=== PATIENT | female | born 1955 | race Caucasian/White ===

== ENCOUNTER 2017-05-18 19:59 | Emergency (ER) | payer BC, OTHER ==
[2017-05-18] MEDS ORDERED: 0.9 % SODIUM CHLORIDE 1,000 ML BAG IV ONE (20:39)
--- NOTE | 2017-05-18 20:53 | Emergency Department Record ---
History of Present Illness - General Chief Complaint: Dizziness Stated Complaint: DIZZY WHEN STANDING,BP DROPS Time Seen by Provider: 05/18/17 20:21 Source: Patient Mode of Arrival: Ambulatory Limitations: No limitations - History of Present Illness Initial Comments: The patient is here due to feeling dizzy when standing for the last 2 days. She has had Influenza for the last 4 days and is on her 3rd day of Tamiflu. Her fever is improved and has resolved but she is still coughing. The patient for the last 2 days has had lightheadedness with standing and walking. There has been no reported vomiting, diarrhea, or CP. 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 At home she noticed her BP was going down with standing so she called him and he wanted her checked out for dehydration and possibly ARDS. Complaint: Lightheadedness Onset/Timin -: Days(s) Timing: Gradual onset Description: Lightheadedness, Off-balance History of Same: Yes (with flu and dehydration) History of Trauma: No Improves With: Remaining still, Rest Worsens With: Movement Associated Symptoms: Cough - Related Data Home Medications Medication Instructions Recorded Confirmed Last Taken Lansoprazole [Prevacid] 30 mg PO DAILY PRN 05/18/17 05/18/17 Unknown Oseltamivir Phosphate [Tamiflu] 75 mg PO BID 05/18/17 05/18/17 05/18/17 Allergies Allergy/AdvReac Type Severity Reaction Status Date / Time cefaclor [From Ceclor] Allergy HIVES Verified 05/18/17 20:08 codeine Allergy NAUSEA AND Verified 05/18/17 20:08 VOMITING hydrocodone Allergy NAUSEA AND Verified 05/18/17 20:08 VOMITING hydromorphone [From Dilaudid] Allergy NAUSEA AND Verified 05/18/17 20:08 VOMITING metoclopramide [From Reglan] Allergy panic Verified 05/18/17 20:08 attack morphine Allergy NAUSEA AND Verified 05/18/17 20:08 VOMITING promethazine [From Phenergan] Allergy panic Verified 05/18/17 20:23 attacks Travel Screening - Travel/Exposure Within Last 30 Days Have you traveled within the last 30 days?: No - Travel Symptoms Symptom Screening: None Review of Systems Constitutional: Reports: Malaise. Denies: Chills, Fever Eyes: Denies: Eye discharge ENT: Reports: Congestion Respiratory: Reports: Cough. Denies: Dyspnea Past Medical History - SOCIAL HISTORY Smoking Status: Never smoker - RESPIRATORY Hx Respiratory Disorders: No - CARDIOVASCULAR Hx Cardio Disorders: Yes Hx Hypertension: Yes (cleared with weight loss) Comment:: High cholesterol - NEURO Hx Neuro Disorders: Yes Hx Headaches: Yes - GI Hx GI Disorders: Yes Hx Reflux: Yes (recent esophogram) Hx Obstructive Bowel: Yes (x3) - Hx Genitourinary Disorders: Yes Hx Kidney Stones: Yes - ENDOCRINE Hx Endocrine Disorders: No - MUSCULOSKELETAL Hx Musculoskeletal Disorders: No - PSYCH Hx Psych Problems: No - HEMATOLOGY/ONCOLOGY Hx Hematology/Oncology Disorders: No Family Medical History Any Significant Family History?: Yes Family Hx Comment (NOT TO BE USED IN PLACE OF ITEMS BELOW): Mom w/thyroid disease, fibromyalgia Hx Cancer: Father *Cancer Comment: Prostate Hx Dementia: Mother Hx Heart Disease: Mother Hx HTN: Father, Mother, Brother/Sister Physical Exam - General General Appearance: Alert, Oriented x3, Cooperative, No acute distress - Head Head exam: Atraumatic, Normocephalic, Normal inspection - Eye Eye exam: Normal appearance, PERRL - ENT Throat exam: Normal inspection. negative: Tonsillar erythema, Tonsillar exudate - Neck Neck exam: Normal inspection, Full ROM. negative: Tenderness - Respiratory Respiratory exam: Normal lung sounds bilaterally. negative: Respiratory distress, Rhonchi, Stridor, Wheezes - Cardiovascular Cardiovascular Exam: Regular rate, Normal rhythm, Normal heart sounds - GI/Abdominal GI/Abdominal exam: Soft, Normal bowel sounds. negative: Tenderness - Extremities Extremities exam: Normal inspection, Full ROM, Normal capillary refill. negative: Tenderness - Neurological Neurological exam: Alert. negative: Motor sensory deficit Course Vital Signs 05/18/17 20:09 Temperature 98.4 F Pulse Rate [ 87 Pulse Ox Probe] Respiratory 16 Rate Blood Pressure 179/86 [Left Arm] Pulse Ox 96 - Reevaluation(s) Reevaluation #1: The patient is doing very well at this time. Her test results are all basically WNL's. She is to F/U with her PCP next week for recheck and also for the RLL nodule. 05/18/17 21:46 Medical Decision Making - Data Complexity MDM Data: Labs Ordered and/or Reviewed, X-Ray Ordered and/or Reviewed, EKG Ordered and/or Reviewed - Lab Data Result diagrams: 05/18/17 20:51 05/18/17 20:51 - EKG Data -: EKG Interpreted by Me EKG: No Acute Changes, Normal EKG - Radiology Data Radiology results: Report reviewed (CXR: Neg for infiltrate. possible nodule RLL.) Disposition Disposition: Discharge Clinical Impression: Influenza Disposition: Home, Self-Care Condition: (2) Stable Instructions: Influenza (ED) Additional Instructions: Please drink plenty of fluids. Please see your PCP next week for recheck and to have the R lung nodule evaluated further. Return to the ER for any worsening symptoms of cough, any fever, or dehydration. Forms: Patient Portal Access Time of Disposition: 21:48 Quality - Quality Measures Quality Measures: N/A - Blood Pressure Screening View Details: Yes Does Patient Have Any of the Following: No Blood Pressure Classification: Pre-Hypertensive BP Reading Systolic Measurement: 171 Diastolic Measurement: 81 Screening for High Blood Pressure: < Pre-Hypertensive BP, F/U Documented > [ G8950] Pre-Hypertensive Follow-up Interventions: Referral to alternative/primary care provider.
[2017-05-18 20:58] LABS: HEMATOCRIT 45.7 % (35.0-47.0); HEMOGLOBIN 15.2 gm/dl (11.6-16.0); MEAN CELL VOLUME 88.6 fl (81-97); MEAN CORPUSCULAR HEMOGLOBIN 29.5 pg (27-33); MEAN CORPUSCULAR HGB CONC 33.3 g/dl (32-36); MEAN PLATELET VOLUME 9.7 fl (7.4-10.4); PLATELET COUNT 255 K/uL (130-400); RED BLOOD COUNT 5.16 M/uL (3.80-5.40); RED CELL DISTRIBUTION WIDTH 12.9 % (11.5-14.5); WHITE BLOOD COUNT W/O DIFF 5.7 K/uL (4.2-12.2)
[2017-05-18 21:12] LABS: BLOOD UREA NITROGEN 20 mg/dL (8-23); CREATININE 0.8 mg/dL (0.5-0.9); EST GLOMERULAR FILTRATION RATE > 60 mL/min; TOTAL PROTEIN 6.8 g/dL (6.6-8.7)
[2017-05-18 21:15] LABS: GLUCOSE,RANDOM 106 mg/dL (74-109)
[2017-05-18 21:17] LABS: ALB/GLOB RATIO 1.6 (1.1-1.8); ALBUMIN 4.2 g/dL (4.0-5.0); ALKALINE PHOSPHATASE 68 U/L (35-104); ALT/SGPT 16 U/L (<33); AST/SGOT 18 U/L (10.0-35.0)
--- NOTE | 2017-05-19 23:54 | RADIOLOGY REPORT ---
EXAM: CHEST 2 VIEWS HISTORY: UNPRODUCTIVE COUGH FOR FOUR WEEKS. TECHNIQUE: Chest x-ray, two views. COMPARISON: None. FINDINGS: Heart not enlarged. No mediastinal mass. No acute infiltrate or vascular congestion identified. A round area of opacity is seen overlying the right lower lung on the frontal film, about 19 mm in size. This may be visualized on the lateral film overlying a lower thoracic vertebra posteriorly. Lungs otherwise appear clear with no vascular congestion. IMPRESSION: 1. ROUNDED AREAS OF OPACITY OVERLYING THE LOWER LUNGS ON THE FRONTAL AND LATERAL FILMS. IT IS POSSIBLE THESE ARE JUST DUE TO SUPERIMPOSITION, HOWEVER, LUNG MASS OR NODULE CAN'T BE EXCLUDED. CHEST CT IS SUGGESTED FOR FURTHER ASSESSMENT. 2. OTHERWISE UNREMARKABLE. JOB NUMBER: [id number] MTDD
== END 2017-05-18 22:05 | disposition home or self-care (01) ==
LOC: ER 19:59
DX: J10.1 Influenza due to other identified influenza virus with other respiratory manifestations (principal); R42 Dizziness and giddiness; I10 Essential (primary) hypertension
CPT/HCPCS: 71046; 80053; 85027; 86140; 93005; 93010; 99284; J7030

== ENCOUNTER 2019-05-09 17:59 | Emergency (ER) | payer OTHER ==
--- NOTE | 2019-05-09 18:12 | Emergency Department Record ---
History of Present Illness - General Chief Complaint: Flu Like Symptoms Stated Complaint: FEVER,COUGH Time Seen by Provider: 05/09/19 18:06 Source: Patient Mode of Arrival: Ambulatory Limitations: No limitations - History of Present Illness Initial Comments: 63 yo female presents with a cough, congestion, runny nose and Tmax of 101. She states she developed mild symptoms last night mostly in the nose and throat. Today the symptoms have gone to her chest. The cough is non productive. No nausea, vomiting or diarrhea. She does not have any underlying lung disease. She is not a smoker. She did not get a Flu vaccination this year. She does work in a doctor's office. MD Complaint: Cough, Fever, Nasal congestion, Rhinorrhea -: Days(s) Quality: Aching Consistency: Constant Improves With: Nothing Worsens With: Nothing Context: Sick contacts Associated Symptoms: Chills, Cough Treatments Prior to Arrival: Acetaminophen - Related Data Home Medications Medication Instructions Recorded Confirmed Last Taken Rosuvastatin Calcium [Crestor] 5 mg PO 05/09/19 Unknown Previous Rx's Medication Instructions Recorded Azithromycin [Zithromax] 250 mg PO DAILY #6 tab 05/09/19 Prednisone [Prednisone 20Mg] 20 mg PO BID #10 tab 05/09/19 Allergies Allergy/AdvReac Type Severity Reaction Status Date / Time cefaclor [From Ceclor] Allergy HIVES Verified 05/09/19 18:35 codeine Allergy NAUSEA AND Verified 05/09/19 18:35 VOMITING hydrocodone Allergy NAUSEA AND Verified 05/09/19 18:35 VOMITING hydromorphone [From Dilaudid] Allergy NAUSEA AND Verified 05/09/19 18:35 VOMITING metoclopramide [From Reglan] Allergy panic Verified 05/09/19 18:35 attack morphine Allergy NAUSEA AND Verified 05/09/19 18:35 VOMITING nitrofurantoin Allergy HIVES Verified 05/09/19 18:35 [From Macrobid] promethazine [From Phenergan] Allergy panic Verified 05/09/19 18:35 attacks nebivolol [From Bystolic] AdvReac HYPERSENSIT Verified 05/09/19 18:35 IVITY Review of Systems Constitutional: Reports: Chills, Fever. Denies: Malaise, Weakness Eyes: Denies: Eye discharge, Eye pain, Photophobia, Vision change ENT: Reports: Congestion, Throat pain. Denies: Ear pain, Epistaxis Respiratory: Reports: Cough. Denies: Dyspnea, Hemoptysis, Wheezes Cardiovascular: Denies: Chest pain, Dyspnea on exertion, Edema Endocrine: Reports: Fatigue. Denies: Polydipsia, Polyuria Gastrointestinal: Denies: Abdominal pain, Diarrhea, Nausea, Vomiting Genitourinary: Denies: Dysuria, Frequency, Hematuria, Retention, Urgency Musculoskeletal: Denies: Arthralgia, Back pain Skin: Denies: Bruising, Change in color, Rash Neurological: Denies: Headache, Numbness, Paresthesias Psychiatric: Denies: Anxiety Hematological/Lymphatic: Denies: Easy bleeding, Easy bruising Past Medical History - SOCIAL HISTORY Smoking Status: Never smoker - RESPIRATORY Hx Respiratory Disorders: No - CARDIOVASCULAR Hx Cardio Disorders: Yes Hx Hypertension: Yes (cleared with weight loss) Comment:: High cholesterol - NEURO Hx Neuro Disorders: Yes Hx Headaches: Yes - GI Hx GI Disorders: Yes Hx Reflux: Yes (recent esophogram) Hx Obstructive Bowel: Yes (x3) - Hx Genitourinary Disorders: Yes Hx Kidney Stones: Yes - ENDOCRINE Hx Endocrine Disorders: No - MUSCULOSKELETAL Hx Musculoskeletal Disorders: No - PSYCH Hx Psych Problems: No - HEMATOLOGY/ONCOLOGY Hx Hematology/Oncology Disorders: No Family Medical History Family Hx Comment (NOT TO BE USED IN PLACE OF ITEMS BELOW): Mom w/thyroid disease, fibromyalgia Hx Cancer: Father *Cancer Comment: Prostate Hx Dementia: Mother Hx Heart Disease: Mother Hx HTN: Father, Mother, Brother/Sister Physical Exam - General General Appearance: Alert, Oriented x3, Cooperative, No acute distress Limitations: No limitations - Head Head exam: Atraumatic, Normal inspection - Eye Eye exam: Normal appearance, PERRL. negative: Conjunctival injection, Scleral icterus - ENT ENT exam: Normal exam, Mucous membranes moist, Normal orophraynx Ear exam: Normal external inspection Nasal Exam: Discharge (clear). negative: Active bleeding, Dried blood, Sinus tenderness Mouth exam: Normal external inspection Teeth exam: Normal inspection Throat exam: Normal inspection. negative: Tonsillar erythema, Tonsillomegaly, Tonsillar exudate, R peritonsillar mass, L peritonsillar mass - Neck Neck exam: Normal inspection. negative: Lymphadenopathy, Meningismus, Tenderness, Thyromegaly - Respiratory Respiratory exam: Normal lung sounds bilaterally. negative: Accessory muscle use, Chest wall tenderness, Decreased breath sounds, Prolonged expiratory, Respiratory distress, Rhonchi, Stridor, Wheezes, Other (Clear lungs) - Cardiovascular Cardiovascular Exam: Regular rate, Normal rhythm, Normal heart sounds - GI/Abdominal GI/Abdominal exam: Soft. negative: Tenderness - Rectal Rectal exam: Deferred - exam: Deferred - Extremities Extremities exam: negative: Pedal edema, Tenderness - Back Back exam: Denies: CVA tenderness (R), CVA tenderness (L) - Neurological Neurological exam: Alert, Oriented X3 - Psychiatric Psychiatric exam: Normal affect, Normal mood - Skin Skin exam: Dry, Intact, Normal color, Warm Course - Reevaluation(s) Reevaluation #1: 05/09/19 18:12 The vitals were reviewed She is afebrile, no tachycardia, and no hypoxia She is non acutely ill in appearance 05/09/19 18:34 The influenza is negative The patient an I discussed the results, home care and reasons for follow up Disposition Disposition: Discharge Clinical Impression: Upper respiratory infection Qualifiers: URI type: unspecified URI Qualified Code(s): J06.9 - Acute upper respiratory infection, unspecified Disposition: Home, Self-Care Condition: (1) Good Instructions: Upper Respiratory Infection (ED) Additional Instructions: Return to the ER if worse, short of breath, fever, or any other new symptoms or concerns Call your doctor for follow up in not improving this week Prescriptions: Prednisone [Prednisone 20Mg] 20 mg PO BID #10 tab Azithromycin [Zithromax] 250 mg PO DAILY #6 tab Forms: Patient Portal Access Time of Disposition: 18:35 Quality - Quality Measures Quality Measures: N/A - Blood Pressure Screening Does Patient Have Any of the Following: No Blood Pressure Classification: Hypertensive Reading Systolic Measurement: 179 Diastolic Measurement: 79 Screening for High Blood Pressure: < Pre-Hypertensive BP, F/U Documented > [G8950] Pre-Hypertensive Follow-up Interventions: Referral to alternative/primary care provider.
[2019-05-09 18:29] LABS: INFLUENZA A NEGATIVE (NEGATIVE); INFLUENZA B NEGATIVE (NEGATIVE)
== END 2019-05-09 19:01 | disposition home or self-care (01) ==
LOC: ER 17:59
DX: J06.9 Acute upper respiratory infection, unspecified (principal); R50.9 Fever, unspecified; I10 Essential (primary) hypertension
CPT/HCPCS: 87400; 99283